=== PATIENT | female | born 1985 | race Caucasian/White ===

== ENCOUNTER 2017-09-05 14:11 | Emergency (ER) | payer MEDICAID, OTHER ==
[2017-09-05] MEDS: SOD CHLORIDE 0.9% 1,000 ML IV (16:08)
[2017-09-05] MEDS: ONDANSETRON 4 MG INJ IV (16:09)
[2017-09-05] MEDS: HYDROCODONE/APAP (5/325) TAB PO (16:09)
[2017-09-05 16:20] LABS: ADD MAN DIFF? NO
[2017-09-05 16:23] LABS: WHITE BLOOD COUNT 6.4 10^3/ul (4.8-10.8)
[2017-09-05 16:23] LABS: BASOPHILS % 0.6 % (0.0-2.0); EOSINOPHILS # 0.2 10^3/ul (0.0-0.5); EOSINOPHILS % 3.1 % (0.0-7.0); HEMATOCRIT 38.5 % (37.0-47.0); HEMOGLOBIN 12.4 g/dl (12.0-16.0); LYMPHOCYTES # 2.8 10^3/ul (0.8-2.9); LYMPHOCYTES % 43.4 % (15.0-51.0); MEAN CORPUSCULAR HEMOGLOBIN 26.3 pg (29.0-33.0); MEAN CORPUSCULAR HGB CONC 32.2 g/dl (32.0-37.0); MEAN CORPUSCULAR VOLUME 81.7 fl (82.0-101.0); MEAN PLATELET VOLUME 9.7 fl (7.4-10.4); MONOCYTE # 0.4 10^3/ul (0.3-0.9); MONOCYTES % 5.8 % (0.0-11.0); NEUTROPHILS % 46.9 % (39.0-77.0); PLATELET COUNT 311 10^3/UL (140-415); RED BLOOD COUNT 4.71 10^6/ul (4.20-5.40); RED CELL DISTRIBUTION WIDTH 13.5 % (11.5-14.5)
[2017-09-05 16:40] LABS: ALANINE AMINOTRANSFERASE 23 IU/L (13-69); ALBUMIN 4.1 g/dl (3.3-4.9); ALBUMIN/GLOBULIN RATIO 1.13; ALKALINE PHOSPHATASE 91 IU/L (42-121); ANION GAP 14 (8-16); ASPARTATE AMINO TRANSFERASE 21 IU/L (15-46); BILIRUBIN,INDIRECT 0.2 mg/dl (0-1.1); BILIRUBIN,TOTAL 0.2 mg/dl (0.2-1.3); BLOOD UREA NITROGEN 15 mg/dl (7-20); CALCIUM 8.7 mg/dl (8.4-10.2); CARBON DIOXIDE 28 mmol/L (21-31); CHLORIDE 104 mmol/L (97-110); CREATININE 0.69 mg/dl (0.44-1.00); GLUCOSE 92 mg/dl (70-220); LIPASE 48 U/L (23-300); POTASSIUM 3.5 mmol/L (3.5-5.1); SODIUM 142 mmol/L (135-144); TOTAL PROTEIN 7.7 g/dl (6.1-8.1)
[2017-09-05 16:52] LABS: PARTIAL THROMBOPLASTIN TIME 30.4 Sec (25.0-35.0)
[2017-09-05 16:55] LABS: TROPONIN-I < 0.012 ng/ml (0.000-0.120)
[2017-09-05 16:56] LABS: INR 0.92; PROTIME 12.4 Sec (11.9-14.9)
== END 2017-09-05 17:10 | disposition home or self-care (01) ==
LOC: FTE 14:11
DX: N20.0 Calculus of kidney (principal); R10.2 Pelvic and perineal pain
CPT/HCPCS: 36415; 74176; 80053; 81025; 83690; 84484; 85025; 85610; 85730; 96374; 99285-25

== ENCOUNTER 2017-10-17 20:16 | Emergency (ER) | payer SELFPAY, MEDICAID ==
[2017-10-18 00:14] LABS: ADD MAN DIFF? NO
[2017-10-18 00:15] LABS: BASOPHILS % 0.4 % (0.0-2.0); EOSINOPHILS # 0.2 10^3/ul (0.0-0.5); EOSINOPHILS % 2.4 % (0.0-7.0); HEMATOCRIT 37.8 % (37.0-47.0); HEMOGLOBIN 12.1 g/dl (12.0-16.0); LYMPHOCYTES # 3.5 10^3/ul (0.8-2.9); LYMPHOCYTES % 49.8 % (15.0-51.0); MEAN CORPUSCULAR HEMOGLOBIN 26.3 pg (29.0-33.0); MEAN CORPUSCULAR VOLUME 82.2 fl (82.0-101.0); MEAN PLATELET VOLUME 9.7 fl (7.4-10.4); MONOCYTE # 0.5 10^3/ul (0.3-0.9); MONOCYTES % 7.6 % (0.0-11.0); NEUTROPHIL # 2.8 10^3/ul (1.6-7.5); NEUTROPHILS % 39.7 % (39.0-77.0); PLATELET COUNT 272 10^3/UL (140-415); RED CELL DISTRIBUTION WIDTH 13.9 % (11.5-14.5)
[2017-10-18] MEDS: ONDANSETRON (ODT) 4 MG TAB ODT (00:29)
[2017-10-18 00:35] LABS: ALANINE AMINOTRANSFERASE 40 IU/L (13-69); ALBUMIN 4.2 g/dl (3.3-4.9); ALBUMIN/GLOBULIN RATIO 1.35; ALKALINE PHOSPHATASE 84 IU/L (42-121); ANION GAP 15 (8-16); ASPARTATE AMINO TRANSFERASE 29 IU/L (15-46); BILIRUBIN,INDIRECT 0.4 mg/dl (0-1.1); BILIRUBIN,TOTAL 0.4 mg/dl (0.2-1.3); BLOOD UREA NITROGEN 12 mg/dl (7-20); CARBON DIOXIDE 25 mmol/L (21-31); CHLORIDE 105 mmol/L (97-110); CREATININE 0.66 mg/dl (0.44-1.00); GLUCOSE 94 mg/dl (70-220); LIPASE 40 U/L (23-300); SODIUM 141 mmol/L (135-144); TOTAL PROTEIN 7.3 g/dl (6.1-8.1)
[2017-10-18 00:49] LABS: ADD UMIC NO; UR ASCORBIC ACID NEGATIVE (NEGATIVE); UR BACTERIA FEW /HPF (NONE SEEN); UR BILIRUBIN (Dip) NEGATIVE (NEGATIVE); UR BLOOD (Dip) NEGATIVE (NEGATIVE); UR CLARITY SLIGHTLY CLOUDY (CLEAR); UR COLOR YELLOW (YELLOW); UR GLUCOSE (Dip) NEGATIVE (NEGATIVE); UR KETONES (Dip) NEGATIVE (NEGATIVE); UR LEUKOCYTE ESTERASE (Dip) NEGATIVE Leu/ul (NEGATIVE); UR MUCUS FEW /HPF (NONE SEEN); UR NITRITE (Dip) NEGATIVE (NEGATIVE); UR RBC 1 /HPF (0-5); UR SPECIFIC GRAVITY (Dip) 1.026 (1.003-1.030); UR SQUAMOUS EPITHELIAL CELL FEW /HPF (FEW); UR TOTAL PROTEIN (Dip) NEGATIVE (NEGATIVE); UR UROBILINOGEN (Dip) NEGATIVE (NEGATIVE); UR WBC 1 /HPF (0-5)
[2017-10-18] MEDS: HYDROCODONE/APAP (5/325) TAB PO (03:50)
== END 2017-10-18 03:52 | disposition home or self-care (01) ==
LOC: FTE 20:16
DX: N70.11 Chronic salpingitis (principal); R10.2 Pelvic and perineal pain
CPT/HCPCS: 36415; 74176; 76830; 76856; 80053; 81001; 81003; 81025; 83690; 85025; 87591; 99285-25